=== PATIENT | female | born 1960 | race Caucasian/White ===

== ENCOUNTER 2016-07-29 14:39 | Emergency (ER) | payer MEDICARE | END 2016-07-29 17:30 | disposition home or self-care (01) | LOC: ER 14:39 | DX: K52.9 Noninfective gastroenteritis and colitis, unspecified (principal); J44.9 Chronic obstructive pulmonary disease, unspecified; F17.210 Nicotine dependence, cigarettes, uncomplicated; Z88.5 Allergy status to narcotic agent | CPT/HCPCS: 36415; 96361; 96374; Q9967 ==